=== PATIENT | female | born 1985 | race Caucasian/White ===

== ENCOUNTER 2019-06-20 10:30 | Outpatient (RCR) | payer OTHER, SELFPAY ==
--- NOTE | 2019-03-29 18:10 | HP.PTEVAL ---
Patient's Visit Information JOSE ORLANDO is a 33 year old F referred to Physical Therapy by SRIDEVI AGUILAR with a diagnosis of STROKE. Date of Evaluation: 03/29/19 Physical Therapist: Reece Munoz, PT, Cert MDT, OCS - Visit Plan Frequency: 2x /Week Duration: 6 Weeks Plan: PT INTERVENTIONS TO INCLUDE PROGRESSIVE BALANCE,GAIT PROGRAM,FUNCTIONAL STRENGTHENING LEFT LE ,ENDURANCE PROGRAM - Subjective Findings: This 33 y/o female presents to physical therapy with stroke with left side weakness. Patient had congential basil artery cerebullum /adam brain and found to HTN and DM .Patient had developed vertigo March 06 went to ER went home unable to move left t side. Patient had speech deficits and fascial drop which has improve.Transferred to [facility] in ICU ,did had MRI showed stroke March 07. Patient transferred to [facility] for 2weeks d/c to home March 20. Patient d/c to home with loftstrand crutch. C/O parathesia/ingling left side. Patient has no falls. Denies dizziness /YEN. Patient has difficulty with ADLS' and housework tasks/job demnads. Patient CVA affects QOL and function and RTW.Patient takes bacoflin for spasms and takes meds for HTN.Patient Independant with bathing with supervison,dressing,unable to cook. SOCIAL: . VOCATION: RN HomeHealth - Objective POSTURE: posterior pelivc tilt. GAIT: ambulates with lofstrand crutch decrease control placement left lower exremity with AFO anklle left arm flexor synergy with stance time. NEURO: HYPONTICITY left lower leg ,hypertonicity left arm,reflees 1/3 achilles ,patella. light touch. TRANSFERS : SIT STAND mod Independant. BED MOBLITY: supine sit with mod Independant. PROM: left lower leg WFL ,AROM decrease hip flexion and poor ankle synergy. MMT: left quads 4-/5,hams 4-/5,hip flexion 3/5,hip abd 3-/5,ankle 1/5 DF/PF. BALANCE: fair+ with no devoce. STAIRS: one step at a time with rails lofstrand - Balance Scores CATSIB Score (Max score 120 seconds): 85 - Goals Goal 1:: Patient to be Independant with HEP. Goal Time Frame: 4-6 Weeks Goal 2:: Patient to ambulate with least restrictive device community distance with improved Quality of gait . Goal Time Frame: 4-6 Weeks Goal 3:: Patient to improve dynamic balance to good Goal Time Frame: 4-6 Weeks Goal 4:: Patient to increase strength of left leg 4/5 exept 3+/5 hip and ankle 4/5 to improve gait Goal Time Frame: 4-6 Weeks Goal 5:: Patient to improve LEFS score by 5-10 points to improve QOL. Goal Time Frame: 4-6 Weeks - Rehabilitation Potential Physical Therapy Diagnosis: This patient sustained CVA with left side hemiplegia with weakness left side increase tone WILFRID and increase strength quad/hams ,with decrease hip strength and poor ankle needs AFO thus causes deficits with gait,balance and ADL'S and housework activities /job demnads. Rehabilitation Potential: Good - Anticipated Interventions Patient/Client Instruction: Educate patient on: Condition, Plan of Care For the Purpose of:: To improve muscle performance and motor function, To improve ability to perform ADL's, To increase tolerance to activity/condition/position, To improve performance and independence with ADL's, To improve ability of physical actions for home/community/work/leisure, To improve gait and locomotor functions, To increase flexibility/ROM, To improve endurance, To improve safety with gait, To improve ability to perform tasks related to life management Therapeutic Exercise to Include: Strength training, Endurance training, Balance training, Coordination, Gait and locomotor training Comment: LEFT LEG For the Purpose of:: To improve muscle performance and motor function, To improve ability to perform ADL's, To increase tolerance to activity/condition/position, To improve ability of physical actions for home/community/work/leisure, To improve gait and locomotor functions, To improve endurance, To improve balance, To improve safety with gait, To improve health and function, To improve ability to perform tasks related to life management Functional Training to Include: Gait training For the Purpose of:: To improve muscle performance and motor function, To improve performance and independence with ADL's Thank you for the opportunity to evaluate your patient. For Medicare and Medicare HMO plans, please review the plan of care and approve it. It will need to be FAXED BACK to us at [phone] for Medicare purposes. For Medicare only, by signing this I certify the plan of care. Please let me know if there are questions or concerns regarding this plan of care. Physician Signature: Date:
--- NOTE | 2019-03-29 18:25 | HP.OTEVAL ---
Patient's Visit Information JOSE ORLANDO is a 33 year old F, referred to Occupational Therapy by SRIDEVI AGUILAR, with a diagnosis of L sided weakness Stroke. Date of Evaluation: 03/29/19 Occupational Therapist: Marimar Stern - Subjective Subjective: Pt seen for initial occupational therapy evaluation for stroke occured 03/06/19. Pt was at [facility] ICU for 2 days, step down for 2 days and rehab 10 days. PMHx DM, high blood pressure, stroke. R handed. Pt lives w/ spouse and daughter. 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 Indep w/ all BADLs/IADLs prior. Pt has numbness and tingling L hand down to toes. Pt reports living with mother and father for time being secondary to requires 24hr supervision. 1 story house, walk in shower w/ shower chair, grab bar, HHS, 3 in 1 commode available but using comfort height commode w/ grab bar, has WC, transport chair, pt has AFO L foot and using forearm crutch. when returns home w/ spouse 2 story house 3 steps to enter, tub/shower, 3 in 1 commode. - Objective Objective/Observation: decreased ROM and strength L UE - ROM ROM Comments: R WFL, L UE PROM WFL, AROM shoulder flexion0/72, shoulder abduction 0/65, elbow -20/118, wrist 0/0, slight flexion digits, unable to complete AROM extension of digits. - Strength Human Resource Manager: R 75#, L 0# Lateral Pinch: R 12# , L 0# Tripod Pinch: R 14#, L 0# Strength Comments: R UE 4+/5, L UE 1/5 hand/forearm, 2/5 bicep/tricep - Edema Other: Slight edema noted L digits - Sensation Sensation Comments: Numbness and tingling L hand down to toes. - Quick DASH-Disab of Arm,Shoulder& Hand Quick DASH Score: 63.6350 - Goals Goal:: Pt will progress w/ L UE bicep/tricep strength 4/5 to assist w/ functional transfers. Pt will progress w/ L resident hall director strength by 5# to assist w/ BADL tasks. Goal:: Pt will progress w/ L wrist extension AROM by 30' to incresae functional use of L UE for BADLs. Pt will progress w/ L elbow AROM to 0/120 to assist w/ UB dressing. Goal:: Pt will be able to aishwarya/doff shoes and socks w/ PR level using AE as needed. Goal:: Pt will be educated on L UE HEP w/ good understanding and demo 100%x Goal:: Pt will progerss w/ L arm coordination skills to increase ability to cut up food w/ SUP level by d/c from OT services. - Rehabilitation General Assessment: Pt seen for initial occupational therapy evaluation for L sided weakness and stroke that occurred middle of February. Pt demonstrates decreased ROM and strength L UE with limited coordiantion and decraesed indep w/ BADL tasks all indicating a need for skilled OT interventions to increase L UE ROM, strength, indep w/ BADLs, and coordination to increase pts quality of life and return to PLOF. 2x/wk x 6wks Rehabilitation Potential: Excellent - Anticipated Interventions Anticipated Interventions: A/AAROM/PROM, Strengthening, Edema Control, Massage, Sensory Retraining, Modalities, Orthoses, Joint Protection/Energy Conservation, Fine Motor Coord/Fab, Neuro Reeducation, ADL Training, Education re assistive Equipment, Education re Diagnosis, Caregiver Training, Home Program - Visit Plan Frequency: 2x /Week Duration: 6 Weeks General Plan: increase L UE ROM, strength, indep w/ BADLs, and coordination to increase pts quality of life and return to PLOF. 2x/wk x 6wks TEXT: Thank you for the opportunity to evaluate your patient. For Medicare and Medicare HMO plans, please review the plan of care and approve it. It will need to be FAXED BACK to us at [phone] for Medicare purposes. Please let me know if there are questions or concerns regarding this plan of care. Physician Signature: Date:
--- NOTE | 2019-05-16 13:45 | OTREVAL_ITS ---
SRIDEVI AGUILAR, It has been my pleasure to treat JOSE ORLANDO over the last 12 visits for L sided weakness Stroke. Please see the progress note below for an update on the occupational therapy plan of care! Subjective: ready for OT Re-eval, pt excited to show therapist her progress Objective/Function: Pt making great progress with OT goals. Pt has progressed with elbow AROM from -20/118 to 0/125. Pt has progressed with shoulder flexion to 120' AROM and shoulder abduction to 95' AROM. Pt was not able to squeeze with L hand to complete building and grounds supervisor strength testing at initial evaluation and now demo 10# building and grounds supervisor strength w/ L hand and 3+/5 bicep/tricep strength L UE. Pt demo decreased spasms of L UE and has progressed with donning/doffing her own socks/shoes and tying her shoes with extra time needed. Pt would continue to benefit from direct occupational therapy services to continue to increase AROM L wrist extension, increase ROM and functional movement of L hand and shoulder abduction/flexion and increase building and grounds supervisor strength of L hand to increase pts indep w/ BADLs and functional living tasks. Rec continued OT 8 visits within 8 wks. Plan Frequency: 8 visits - 8 visits, 8 wks Duration: 8 wks Visits in this POC: 8 visits per 8 wks Plan: see re-eval Goals - Goals Goal:: Pt will progress w/ L UE bicep/tricep strength 4/5 to assist w/ funct ional transfers. Pt will progress w/ L building and grounds supervisor strength to 25# to assist w/ BADL tasks. Goal:: Pt will progress w/ L wrist extension AROM by 30' to incresae functional use of L UE for BADLs. Pt will progress w/ L shoulder abduction AROM to 120' to increase indep w/ BADL tasks. Goal:: Pt will be able to aishwarya/doff shoes and socks w/ AR level using AE as needed. Goal:: Pt will be educated on L UE HEP w/ good understanding and demo 100%x Goal:: Pt will progerss w/ L arm coordination skills to increase ability to cut up food w/ SUP level by d/c from OT services. Anticipated Interventions Anticipated Interventions: A/AAROM/PROM, Strengthening, Edema Control, Massage, Sensory Retraining, Modalities, Orthoses, Joint Protection/Energy Conservation, Fine Motor Coord/Fab, Neuro Reeducation, ADL Training, Education re assistive Equipment, Education re Diagnosis, Caregiver Training, Home Program Please do not hesitate to contact me at [phone] by phone or if you have questions or concerns regarding this new plan of care! Sincerely, Marimar Stern
--- NOTE | 2019-06-20 13:51 | HP.OTDCSUM ---
HP - OT D/C Summary It has been my pleasure to treat JOSE ORLANDO under orders from SRIDEVI AGUILAR, for the diagnosis of L sided weakness Stroke for a total of 20 visit(s). Please see the following information for a summary of their discharge status. - Overall Improvement % Improvement: 60 - Objective Objective/Function: Pt frustrated with decrease in function due to medication. - Goals Patient Goals: Regain Mobility, Regain Strength, Decrease Pain, Decrease Swelling/Stiffness, Improve Fine Motor Skills, Use Hand/Wrist/Arm Normally Again, Decrease Tingling/Numbness, Increase ROM, Be More Independent in ADLS, Decrease Muscle Tone, Resume Former Household Responsibilities (Cooking,Cleaning,Yard, etc.), Resume Hobbies Goal:: Pt will progress w/ L UE bicep/tricep strength 4/5 to assist w/ functional transfers. Pt will progress w/ L accountant controller strength to 25# to assist w/ BADL tasks. Goal:: Pt will progress w/ L wrist extension AROM by 30' to incresae functional use of L UE for BADLs. Pt will progress w/ L shoulder abduction AROM to 120' to increase indep w/ BADL tasks. Goal:: Pt will be able to aishwarya/doff shoes and socks w/ LA level using AE as needed. Goal:: Pt will be educated on L UE HEP w/ good understanding and demo 100%x Goal:: Pt will progerss w/ L arm coordination skills to increase ability to cut up food w/ SUP level by d/c from OT services. - Plan Plan: d/c OT POC secondary to cut by insurance - D/C Information Discharge Comments: Pt has progressed with OT services and demonstrates increased indep with self care tasks with extra time needed. She is able to get her socks and shoes on and dress her self with extra time needed. Pt has progressed with L accountant controller strength from 0# initially to 20# present. Pt shoulder flexion AROM has progressed to 147' flexion. L bicep generalized strength has progressed to -4/5. Pt AROM L wrist extension has progressd to 55' and shoulder abduction has progressed from 65' to 105'. Pt did not meet all ROM and strength goals secondary to cut by insurance. Would recommend further OT services however pt met max insurance visits therefore d/c OT services. If there are questions or concerns regarding this patient's occupational therapy, please fell free to call me at [phone]. Thank you for the referral of this patient. Sincerely, Marimar Stern
--- NOTE | 2019-07-31 13:43 | HP.PTDCSUM ---
HP - PT D/C Summary It has been my pleasure to treat JOSE ORLANDO under orders from SRIDEVI AGUILAR, for the diagnosis of STROKE for a total of 20 visit(s). Discharge Date: Please see the following information for a summary of their discharge status. - Subjective Subjective: Patient frustrated with insurance . Patient able to walk better no lofstrand crutch and AFO . Patient can walk without left AFO in home. Patient wants PT to get more vists but called insurance stated no hard cape 20 visits.Insurance person called.Discussed with patient transition to HP and thompson package. Patient plans to joint HP with transition program. Also look into thompson package. - Overall Improvement % Improvement: 60 - Objective Objective/Function: POSTURE: rounded shoulders head foward. NEURO: flexor synergy left hand and lower leg with increase tone. GAIT: Mod I with AFO with decrease swing phase no active DF ,flexor synergy. MMT: quads/hams 4/5,hip 4-/5 ankle anterior tibials trace. BALANCE: good -. STAIRS: alternate with rail - Goals Goal 1:: Patient to be Independant with HEP. Goal Progress: Goal Met Goal 2:: Patient to ambulate with least restrictive device community distance with improved Quality of gait . Goal Progress: Goal Met Goal 3:: Patient to improve dynamic balance to good Goal Progress: Progressing Goal 4:: Patient to increase strength of left leg 4/5 exept 3+/5 hip and ankle 4/5 to improve gait Goal Progress: Progressing Goal 5:: Patient to improve LEFS score by 5-10 points to improve QOL. Goal Progress: Goal Met - Plan Plan: May consider thompson package,thus is d/c - D/C Information If there are questions or concerns regarding this patient's physical therapy, please feel free to call me at [phone]. Thank you for the referral of this patient. Sincerely, Reece Munoz, PT, Cert MDT, OCS
== END 2019-06-20 19:00 | disposition home or self-care (01) ==
LOC: PT 10:30
DX: Z86.73 Personal history of transient ischemic attack (TIA), and cerebral infarction without residual deficits (principal); G81.14 Spastic hemiplegia affecting left nondominant side; R29.2 Abnormal reflex
CPT/HCPCS: 97014; 97110; 97112; 97140; 97162; 97165; 97166; 97168; 97530; G0283

== ENCOUNTER 2021-03-27 10:00 | Outpatient (RCR) | payer OTHER, SELFPAY ==
--- NOTE | 2020-08-20 09:23 | HP.PTEVAL_ITS ---
Patient's Visit Information JOSE ORLANDO is a 35 year old F referred to Physical Therapy by JAQUAN COOL with a diagnosis of L sided weakness. Date of Evaluation: 08/20/20 Physical Therapist: Kwasi Jordan, PT, ATC - Visit Plan Frequency: 3x /Week Duration: 4-6 Weeks Plan: L LE stretching and strengthening, balance and proprio, core stab ex's, nustep, and HEP - Subjective CVA: March 07, 2019. Pt reports she had a stroke at that time that has left her with L sided weakness. Pt reports she has had Pt in the past and has worked with a massage therapist to aid with her L UE. Pt reports 12 months ago she could not even move her L arm. Pt reports her L LE is less stable, but reports she feels 75% recovered. Pt reports her greatest complaint is with her L ankle, as she has drop foot. 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 Pt notes good sensation in L LE. Pt does not ambulate with the use of an AD. Pt reports she has stairs at home and has difficulty with negotiating them. Pt also notes difficulty with prolonged ambulation. Pt reports her balance is off, most notably if she is walking down a hill or ramp. No pain this date. - Objective Neuro: B LE sensation is WNL to light touch. R patellar reflex= 1/3, L= 3+/3. MMT: R LE is grossly 5/5 throughout. L hip strength is 4+/5. L knee strength 4- /5. L ankle DF strength is 0/5. FGA: 1530. Gait: Pt ambulates with a mild limp of the L LE and circumduction - Balance Scores Functional Gait Assessment Score: 15 % Disability: 50.0000 - Goals Goal 1:: Increase L LE strength x 1 grade to aid with stair negotiation Goal Time Frame: 4-6 Weeks Goal 2:: Increas FGA x 5-10 points to aid with preventing future falls Goal Time Frame: 4-6 Weeks Goal 3:: I with HEP - Rehabilitation Potential Physical Therapy Diagnosis: L sided weakness, difficulty with stairs, and decreased balance secondary to residual effects from CVA Rehabilitation Potential: Good - Anticipated Interventions Patient/Client Instruction: Educate patient on: Condition, Plan of Care For the Purpose of:: To improve self management Therapeutic Exercise to Include: Strength training, Endurance training, Balance training, Flexibilty training, Dynamic Lumbar Stabilization For the Purpose of:: To decrease pain, To increase ROM, To improve muscle performance and motor function Thank you for the opportunity to evaluate your patient. For Medicare and Medicare HMO plans, please review the plan of care and approve it. It will need to be FAXED BACK to us at [phone] for Medicare purposes. For Medicare only, by signing this I certify the plan of care. Please let me know if there are questions or concerns regarding this plan of care. Physician Signature: Date:
--- NOTE | 2020-08-22 08:47 | HP.OTEVAL_ITS ---
Patient's Visit Information JOSE ORLANDO is a 35 year old F, referred to Occupational Therapy by JAQUAN COOL, with a diagnosis of CVA left UE weakness. Date of Evaluation: 08/21/20 Occupational Therapist: Rena Díaz, MERT/Paxton, CHT - Subjective This 35 year old female was seen for OT eval with dx of CVA and left UE w eakness. Pt states she has had difficulty with muscle tightness. Pt is working with massage therapist and cupping at home to decrease her muscle tightness- pt states with suppliments she started taking in apr she is pain free. - ROM Shoulder: right WNL 85 Elbow: right WNL left 135 Forearm: right WNL left initiation Wrist: right WNL left initiation ROM Comments: pt has fisted hand but with wrist positioned in flex fingers open up - Strength Shoulder: right 4+/5 left 3/5 Elbow: right 4+/5 left 3/5 Forearm: right 4+/5 trace Wrist: right 4+/5 trace Inter Com Installer: right 72# left unable Lateral Pinch: right 6# left unable Tripod Pinch: right 10# left unable - Sensation Sensation Comments: numbess in palm that comes and goes - Movement Muscle Tone: left shoulder min/ biceps mod forearm min and wrist mod fingers min - Quick DASH-Disab of Arm,Shoulder& Hand Quick DASH Score: 55.0000 - Goals Goal:: pt will demo the ability to resisit MMT 4/5 in sitting with left UE indicating a increase in pts functional strength by d/c Goal:: pt will demo left shoulder flex to 155* or greater to increase ind with ADLS and IADLs by d/c. pt will demo left forearm supination to 70* or greater to increase ind with ADls and IADLS by d/c. pt will demo increase digit ROM to initiate grasp and release of med/large objects at able to use left UE as assistive UE with ADLs and IADLs Goal:: pt will report pain no greater than 2/10 with use of left UE for ADls or while performing her Theray by d/c Goal:: pt will demo the ability to grasp large and medium objects by d/c - Rehabilitation General Assessment: pt demo with limited left UE AROM and functional limitations with ADLs and IADLs. Pt has increase tone in shoulder/biceps/triceps-no wrist or digit ext - fingers in flexed position with ambulation. pt would benefit from skilled OT services to increase pts functional left UE ROM to increase pt ind. with ADLs and IADLS. Today therapist ed. pt on AAROM of left UE shoulder/elbow/wrist and digits followed with PROM, wt.B. pt demo understanding and agree to POC. Rehabilitation Potential: Good - Anticipated Interventions A/AAROM/PROM, Strengthening, Ergonomic Education, Fine Motor Coord/Fab, Neuro Reeducation, ADL Training, Education re assistive Equipment, Home Program - Visit Plan Frequency: 3x /Week Duration: 3 Months TEXT: Thank you for the opportunity to evaluate your patient. For Medicare and Medicare HMO plans, please review the plan of care and approve it. It will need to be FAXED BACK to us at [phone] for Medicare purposes. Please let me know if there are questions or concerns regarding this plan of care. Physician Signature: Date:
--- NOTE | 2020-09-10 12:32 | OTREVAL_ITS ---
JAQUAN COOL, It has been my pleasure to treat JOSE ORLANDO over the last 7 visits for CVA left UE weakness. Please see the progress note below for an update on the occupational therapy plan of care! Subjective: Pt arrived stating she saw her massage therapist and he thinks the pain is from her traps and rhomboids are what is weak and causing her so much pain. pt states she is performing her ex. daily Objective/Function: Increase pain with shoulder flexion. pt demo good concistant elbow flex/ext -. no functional wrist ext at this time. and figers flexing with contractures-limiting a functional grasp. pts shoulder still painful in pec region with reaching tasks . pt would benefit from skilled OT services 2-3x week for 8 weeks. Plan Frequency: 3x /Week Duration: 3 Months Plan: get mixing plant operator prior ex. cont with AAROM. shoulder AAROM to gain functional use of UE Goals - Goals Patient Goals: Regain Mobility, Regain Strength, Use Hand/Wrist/Arm Normally Again, Be More Independent in ADLS Goal:: pt will demo the ability to resisit MMT 4/5 in sitting with left UE indicating a increase in pts functional strength by d/c Goal:: pt will demo left shoulder flex to 155* or greater to increase ind with ADLS and IADLs by d/c. pt will demo left forearm supination to 70* or greater to increase ind with ADls and IADLS by d/c. pt will demo increase digit ROM to initiate grasp and release of med/large objects at able to use left UE as assistive UE with ADLs and IADLs Goal:: pt will report pain no greater than 2/10 with use of left UE for ADls or while performing her Theray by d/c Goal:: pt will demo the ability to grasp large and medium objects by d/c Anticipated Interventions Anticipated Interventions: A/AAROM/PROM, Strengthening, Ergonomic Education, Fine Motor Coord/Fab, Neuro Reeducation, ADL Training, Education re assistive Equipment, Home Program Please do not hesitate to contact me at [phone] by phone or if you have questions or concerns regarding this new plan of care! Sincerely, Rena Díaz, OTR/L, CHT
--- NOTE | 2020-12-18 16:35 | HP.PTREVAL ---
JAQUAN COOL, It has been my pleasure to treat JOSE ORLANDO over the last 26 visits for L sided weakness. Please see the progress note below for an update on the physical therapy plan of care! Subjective: Pt reports she is progressing a lot. Notes she is walking better and is able to transfer easier. Pt notes her DF in her L ankle is improving, and stair negotiation is becoming much improved. Objective/Function: Pt is in no pain today. L LE strength is grossly 5/5 with exception to L ankle DF= 3/5. FGA= 21/30. Gait: Pt is able to ambulate 1700 feet until having to sit and rest Plan Plan: Cont with POC with emphasis on stair negotiation, balance activity, and L ankle strengthening Goals Goal 1:: Increase L LE strength x 1 grade to aid with stair negotiation Goal Time Frame: 4-6 Weeks Goal Progress: Goal Met Goal 2:: Increas FGA x 5-10 points to aid with preventing future falls Goal Time Frame: 4-6 Weeks Goal Progress: Goal Met Goal 3:: I with HEP Goal Progress: Progressing Goal 4:: Increase FGA x 10 points to aid with preventing future falls Goal Time Frame: 4-6 Weeks Goal Progress: New goal Goal 5:: Pt will be able to negotiate 1 flight of stairs with no use of UE's and carrying 5 pounds to simulate carrying groceries up a flight of stairs Goal Time Frame: 4-6 Weeks Goal Progress: New goal Anticipated Interventions Patient/Client Instruction: Educate patient on: Condition, Plan of Care For the Purpose of:: To improve self management Therapeutic Exercise to Include: Strength training, Endurance training, Balance training, Flexibilty training, Dynamic Lumbar Stabilization For the Purpose of:: To decrease pain, To increase ROM, To improve muscle performance and motor function Please do not hesitate to contact me at [phone] by phone or if you have questions or concerns regarding this new plan of care! Sincerely, Kwasi Jordan, PT, ATC
--- NOTE | 2021-01-07 08:02 | OTREVAL_ITS ---
JAQUAN COOL, It has been my pleasure to treat JOSE ORLANDO over the last 3 visits for CVA left UE weakness. Please see the progress note below for an update on the occupational therapy plan of care! Subjective: Pt states her week off did well for her. Pt has little tingles in fingers today. Massage therapist states he can feel deltoid now. 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 pt demo shoulder flex to 90*. pt demo increased ability to reach across body performing horizontal shoulder adduction-. noted pt continues to have fluid elbow flex/ext and demo forearm supination with elbow flex and pronation with elbow ext. if elbow is at 90* pt demo ataxic left forearm supination (with scapular retraction compensation). pt demo with wrist ext has gained 25* of active motion. no consistant finger or thumb motion- at this time- pt continues to make gains with her motion and would benefit from skilled OT services 2x week for 4 weeks to continue to stress motion and return of left UE use. Plan Frequency: 3x /Week Duration: 3 Months Plan: cont w/OT POc Goals - Goals Patient Goals: Regain Mobility, Regain Strength, Use Hand/Wrist/Arm Normally Again, Be More Independent in ADLS Goal:: pt will demo the ability to resisit MMT 4+/5 in sitting with left UE indicating a increase in pts functional strength by d/c Goal:: pt will demo left shoulder flex to 165* or greater to increase ind with ADLS and IADLs by d/c. pt will demo left forearm supination to 70* or greater to increase ind with ADls and IADLS by d/c. pt will demo increase digit ROM to initiate grasp and release of med/large objects at able to use left UE as assistive UE with ADLs and IADLs Goal:: pt will report pain no greater than 2/10 with use of left UE for ADls or while performing her Theray by d/c Goal:: pt will demo the ability to grasp large and medium objects ind with left and hold for 10 sec. as precursor for ADLs by d/c Anticipated Interventions Anticipated Interventions: A/AAROM/PROM, Strengthening, Ergonomic Education, Fine Motor Coord/Fab, Neuro Reeducation, ADL Training, Education re assistive Equipment, Home Program Please do not hesitate to contact me at [phone] by phone or if you have questions or concerns regarding this new plan of care! Sincerely, Rena Díaz, OTR/L, CHT
--- NOTE | 2021-01-22 16:18 | HP.PTREVAL ---
JAQUAN COOL, It has been my pleasure to treat JOSE ORLANDO over the last 15 visits for L sided weakness. Please see the progress note below for an update on the physical therapy plan of care! Subjective: Pt reports she feels ready to give I exercise a chance. She feels like she has come a long way and wants to exercise for a month on her own and then be re-assessed to make sure she is still improving. Objective/Function: FGA: 27/30 10% disability. Stairs: Pt was able to ascend and descend 1 flight of stairs holding a 5# wt and using no HR. Pt is I with HEP Plan Plan: Recheck in 1 month Goals Goal 1:: Increase L LE strength x 1 grade to aid with stair negotiation Goal Time Frame: 4-6 Weeks Goal Progress: Goal Met Goal 2:: Increas FGA x 5-10 points to aid with preventing future falls Goal Time Frame: 4-6 Weeks Goal Progress: Goal Met Goal 3:: I with HEP Goal Progress: Goal Met Goal 4:: Increase FGA x 10 points to aid with preventing future falls Goal Time Frame: 4-6 Weeks Goal Progress: Goal Met Goal 5:: Pt will be able to negotiate 1 flight of stairs with no use of UE's and carrying 5 pounds to simulate carrying groceries up a flight of stairs Goal Time Frame: 4-6 Weeks Goal Progress: Goal Met Anticipated Interventions Patient/Client Instruction: Educate patient on: Condition, Plan of Care For the Purpose of:: To improve self management Therapeutic Exercise to Include: Strength training, Endurance training, Balance training, Flexibilty training, Dynamic Lumbar Stabilization For the Purpose of:: To decrease pain, To increase ROM, To improve muscle performance and motor function Please do not hesitate to contact me at [phone] by phone or if you have questions or concerns regarding this new plan of care! Sincerely, Kwasi Jordan, PT, ATC
--- NOTE | 2021-01-27 12:39 | OTREVAL_ITS ---
JAQUAN COOL, It has been my pleasure to treat JOSE ORLANDO over the last 15 visits for CVA left UE weakness. Please see the progress note below for an update on the occupational therapy plan of care! Subjective: pt states she is doing ok- continues to have tightness in left shoulder- pec region- fingers continue to have tone limiting pts ability to extend fingers or release an object once grasped. Objective/Function: pt demo a left electric meter repairer strength of 30# this is increase from 20 at last doc. pt demo shoulder flex to 105 a increase from 90*. pt demo increased ability to reach across body performing horizontal shoulder abduction- . noted pt continues to have fluid elbow flex/ext and demo forearm supination with elbow flex and pronation with elbow ext. if elbow is at 90* pt demo ataxic left forearm supination (with scapular retraction compensation). pt demo with wrist ext has gained 25* of active motion. no consistent finger or thumb motion- at this time- pt continues to make gains with her motion and would benefit from skilled OT services 1x a month for 4 weeks to continue to stress motion and return of left UE use. pts tone in left UE flexor tendons pt would benefit from use of dynasplint to decrease tone patterns- to increase functional ROM Plan Frequency: Monthly - Due to insurance changes Duration: 3 Months Plan: cont with POC Goals - Goals Patient Goals: Regain Mobility, Regain Strength, Use Hand/Wrist/Arm Normally Again, Be More Independent in ADLS Goal:: pt will demo the ability to resisit MMT 4+/5 in sitting with left UE indicating a increase in pts functional strength by d/c Goal:: pt will demo left shoulder flex to 165* or greater to increase ind with ADLS and IADLs by d/c. pt will demo left forearm supination to 70* or greater to increase ind with ADls and IADLS by d/c. pt will demo increase digit ROM to initiate grasp and release of med/large objects at able to use left UE as assistive UE with ADLs and IADLs Goal:: pt will report pain no greater than 2/10 with use of left UE for ADls or while performing her Theray by d/c Goal:: pt will demo the ability to grasp large and medium objects ind with left and hold for 10 sec. as precursor for ADLs by d/c Anticipated Interventions Anticipated Interventions: A/AAROM/PROM, Strengthening, Ergonomic Education, Fine Motor Coord/Fab, Neuro Reeducation, ADL Training, Education re assistive Equipment, Home Program Please do not hesitate to contact me at [phone] by phone or if you have questions or concerns regarding this new plan of care! Sincerely, Rena Díaz, OTR/L, CHT
--- NOTE | 2021-02-19 11:04 | HP.PTREVAL ---
JAQUAN COOL, It has been my pleasure to treat JOSE ORLANDO over the last 16 visits for L sided weakness. Please see the progress note below for an update on the physical therapy plan of care! Subjective: Pt reports she has continued to make way over the last month. Objective/Function: L LE strength is 5/5 throughout with exception to L ankle which is 3/5. FGA= 27/30. Pt is able to ascend stairs without difficulty, but requires handrail to descend. Pt is I with HEP Plan Plan: reassess in 6 weeks Goals Goal 1:: Increase L LE strength x 1 grade to aid with stair negotiation Goal Time Frame: 4-6 Weeks Goal Progress: Goal Met Goal 2:: Increas FGA x 5-10 points to aid with preventing future falls Goal Time Frame: 4-6 Weeks Goal Progress: Goal Met Goal 3:: I with HEP Goal Progress: Goal Met Goal 4:: Increase FGA x 10 points to aid with preventing future falls Goal Time Frame: 4-6 Weeks Goal Progress: Goal Met Goal 5:: Pt will be able to negotiate 1 flight of stairs with no use of UE's and carrying 5 pounds to simulate carrying groceries up a flight of stairs Goal Time Frame: 4-6 Weeks Goal Progress: Goal Met Anticipated Interventions Patient/Client Instruction: Educate patient on: Condition, Plan of Care For the Purpose of:: To improve self management Therapeutic Exercise to Include: Strength training, Endurance training, Balance training, Flexibilty training, Dynamic Lumbar Stabilization For the Purpose of:: To decrease pain, To increase ROM, To improve muscle performance and motor function Please do not hesitate to contact me at [phone] by phone or if you have questions or concerns regarding this new plan of care! Sincerely, Kwasi Jordan, PT, ATC
--- NOTE | 2021-03-27 10:57 | HP.PTREVAL ---
JAQUAN COOL, It has been my pleasure to treat JOSE ORLANDO over the last 17 visits for L sided weakness. Please see the progress note below for an update on the physical therapy plan of care! Subjective: Some days I feel weaker, some days I feel stronger. I can go up the stairs easier. My tone is lessening in my leg. Objective/Function: L LE strength is 5/5 throughout with exception to L ankle which is 3/5. FGA= 26/30. Pt is able to ascend stairs without difficulty, but requires handrail to descend. Pt is I with HEP. Pt is showing continued way with HEP at this time. Plan Plan: reassess in 6 weeks Goals Goal 1:: Increase L LE strength x 1 grade to aid with stair negotiation Goal Time Frame: 4-6 Weeks Goal Progress: Goal Met Goal 2:: Increas FGA x 5-10 points to aid with preventing future falls Goal Time Frame: 4-6 Weeks Goal Progress: Goal Met Goal 3:: I with HEP Goal Progress: Goal Met Goal 4:: Increase FGA x 10 points to aid with preventing future falls Goal Time Frame: 4-6 Weeks Goal Progress: Goal Met Goal 5:: Pt will be able to negotiate 1 flight of stairs with no use of UE's and carrying 5 pounds to simulate carrying groceries up a flight of stairs Goal Time Frame: 4-6 Weeks Goal Progress: Goal Met Anticipated Interventions Patient/Client Instruction: Educate patient on: Condition, Plan of Care For the Purpose of:: To improve self management Therapeutic Exercise to Include: Strength training, Endurance training, Balance training, Flexibilty training, Dynamic Lumbar Stabilization For the Purpose of:: To decrease pain, To increase ROM, To improve muscle performance and motor function Please do not hesitate to contact me at [phone] by phone or if you have questions or concerns regarding this new plan of care! Sincerely, Kwasi Jordan, PT, ATC
== END 2021-03-27 19:00 | disposition home or self-care (01) ==
LOC: PT 10:00
DX: S60.5 Other superficial injuries of hand (principal)
CPT/HCPCS: 97110; 97112; 97140; 97161; 97164; 97166; 97530; 97760

== ENCOUNTER 2021-05-05 16:00 | Outpatient (RCR) | payer OTHER, SELFPAY ==
--- NOTE | 2021-10-05 09:33 | HP.PT.NRP ---
JOSE Cinthia ORLANDO was seen in my office for initial evaluation on . The following Plan of Care was established for this patient: This patient was last seen in our office . Pertinent comments regarding their Physical therapy will appear below: Pt was treated for 18 PT visits for L sided weakness through the date of 05/05/21. Pt has not returned today and is therefore discontinued at this time. At this point I will be discontinuing this patient from physical therapy. I would be happy to see this patient again in the future if found appropriate by the physician. Thank you! Kwasi Jordan, PT, ATC Balance/Gait/Functional tests - Balance/Special Test Scores Functional Gait Assessment Score: 26 % Disability: 13.2275
== END 2021-05-05 19:00 | disposition home or self-care (01) ==
LOC: PT 16:00
DX: M21.372 Foot drop, left foot (principal)
CPT/HCPCS: 97140; 97164; 97530

== ENCOUNTER 2022-04-19 18:00 | Outpatient (RCR) | payer OTHER, SELFPAY ==
--- NOTE | 2021-10-21 12:22 | HP.PTEVAL_ITS ---
Patient's Visit Information JOSE ORLANDO is a 36 year old F referred to Physical Therapy by SEBASTIAN MICHAEL with a diagnosis of L hemiparesis. Date of Evaluation: 10/21/21 Physical Therapist: Kwasi Jordan, PT, ATC - Visit Plan Frequency: 2-3x /Week Duration: 3 Months Plan: L ankle stretching and strengthening, PROM/mobs L ankle, balance and proprio, nustep, and HEP - Subjective CVA: 03/07/19. Pt reports she had a stroke which left her with L hemiparesis. Pt reports she has had PT in the past which made a big difference. However, pt notes she still has difficulty with L UE and LE weakness. Pt notes she had a botox injection seven days ago which has helped with some of her contractures. Pt reports in August of 2021 she had a hysterectomy which has also left her feeling quite a bit debilitated. Pt reports she does still notice gradual improvements overall with her mobility, but notes she is frustrated with her deficits. Pt has stairs at home and notes she has to negotiate them one step at a time. Pt reports she is still limited with UE fuctions as well like folding laundry and cleaning. No tingling or numbness in LE's. Pt reports her major goals are to increase L LE flexibility and to strengthen L UE. Pt reports she is still in pain along her L lateral thigh, anterior morfin, and L gastroc. Pt reports her pain is currently rated at 2/10. - Pain L LE Pain Intensity (Out of 10): 2 - Objective Neuro: B LE sensation is WNL to light touch. R patellar reflex= 1/3, L= 3/3. ROM: R ankle DF= 4, PF= 60; L ankle DF= -20, PF= 50. MMT: L ankle is grossly 2- /5, R ankle 5/5 throughout. Gait: Pt ambulates with minimal heelsstrike and toe off in L LE - Balance/Special Test Scores Lower Extremity Functional Score: 42 - Goals Goal 1:: Increase L ankle DF ROM x 20 degrees to aid with gait Goal Time Frame: 4-6 Weeks Goal 2:: Increase L ankle strength x 1 grade to aid with stair negotiation Goal Time Frame: 4-6 Weeks Goal 3:: I with HEP Goal Time Frame: 4-6 Weeks Goal 4:: Pt will demonstrate a more normalized gait pattern with better heel strike to aid with community ambulation Goal Time Frame: 4-6 Weeks - Rehabilitation Potential Physical Therapy Diagnosis: Pt has L sided weakness, limited L ankle ROM, and difficulty with gait pattern secondary to L hemiparesis Rehabilitation Potential: Good - Anticipated Interventions Patient/Client Instruction: Educate patient on: Condition, Plan of Care For the Purpose of:: To improve self management Therapeutic Exercise to Include: Strength training, Balance training, Flexibilty training, Passive ROM, Active ROM For the Purpose of:: To decrease pain, To increase ROM, To improve muscle performance and motor function Thank you for the opportunity to evaluate your patient. For Medicare and Medicare HMO plans, please review the plan of care and approve it. It will need to be FAXED BACK to us at [phone] for Medicare purposes. For Medicare only, by signing this I certify the plan of care. Please let me know if there are questions or concerns regarding this plan of care. Physician Signature: Date:
--- NOTE | 2021-10-21 15:17 | HP.OTEVAL_ITS ---
Patient's Visit Information JOSE ORLANDO is a 36 year old F, referred to Occupational Therapy by SEBASTIAN MICHAEL, with a diagnosis of CVA, spastic hemiparesis. Date of Evaluation: 10/21/21 Occupational Therapist: Rena Díaz, OTR/L, CHT - Subjective This 36 year old female was seen for OT eval with dx of left spastic hem iparesis- order calls for OT 2x week of 12 weeks- total of 24 visits-. pt just had Botox 1 week ago- pt is still on Tizandine (muscle relaxer)- pts goals are to gain more ROM to increases functional use of left UE with daily tasks. 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 - ADLs Dressing: Overhead shirt, Button shirt, Pants, Socks Fasteners: Tie shoes, Buttons, Zippers Bathing: Handle washcloth & soap, Wash hair, Squeeze shampoo bottle Kitchen: Peel fruits & vegetables, Open jars, Open bottle caps Miscellaneous: Use cell phone, Handle money (change), Take things out of wallet, Use computer keyboard - Pain left UE 1 Pain Intensity Range: 3, 4 - ROM Shoulder: right WNL left 90* active PROM 150 shoulder flex- shoulder abduction L 110* Elbow: right WNL left 0/140 Forearm: right WNL left slow but can get Full ROM ROM Comments: pt has made good gains with her ROM -. pt demo the ability to perform shoulder flexion without compensation of elbow flex- - Strength H[employer] Captain: right 70# left 35# Lateral Pinch: right 10# left 8# Tripod Pinch: right 12# Left unable - Sensation Sensation Comments: numbness tingling just in finger tips (pip distally) pt states increase pins and needles with increase use and will get the entire hand. - Quick DASH-Disab of Arm,Shoulder& Hand Quick DASH Score: 51.6650 - Goals Goal:: pt will demo a increase in left shoulder flex 4+/5 abduction 4+/5. scapula elevation 4+/5 and scapula retraction 4+/5 MMT to increase pts ROM for IND ADLS by d.c. pt will demo fluid reciprocal shoulder flexion as precursor to ADLs by week 6 Goal:: pt will demo a increase in left shoulder flex to 155* or greater to increase pts ind with ADls by d/d. pt will demo a increase in left shoulder abduction 155* or greater to increase pts ind. with ADLS and IADLS by d.c Goal:: will add goal at later date as pt gains more shoulder flex/ext Goal:: pt will demo understanding of using hand brace at night and throughout the day to decrease flexion tone of digits by end of week 3 - Rehabilitation General Assessment: pt demo with limited left UE ROM increasing need of support and assist from others for ADls and IADLS. pt would benefit from skilled OT services 2x week for 12 weeks- Therapy will focus on shoulder, scapula strengthening to assist in strengthening extensor components to counter balance flexion tone- once pt increases functional ROM of shoulder/elbow therapy will progress to functional grasp/release of objects. Rehabilitation Potential: Good - Anticipated Interventions A/AAROM/PROM, Strengthening, Triggerpoint Release, Orthoses, Ergonomic Education, Neuro Reeducation, Sensory Stimulation, ADL Training, Education re assistive Equipment, Education re Diagnosis, Caregiver Training, Home Program - Visit Plan Frequency: 2-3x /Week Duration: 3 Months TEXT: Thank you for the opportunity to evaluate your patient. For Medicare and Medicare HMO plans, please review the plan of care and approve it. It will need to be FAXED BACK to us at [phone] for Medicare purposes. Please let me know if there are questions or concerns regarding this plan of care. Physician Sig nature: Date:
--- NOTE | 2021-12-08 16:35 | HP.PTREVAL ---
SEBASTIAN MICHAEL, It has been my pleasure to treat JOSE ORLANDO over the last 13 visits for L hemiparesis. Please see the progress note below for an update on the physical therapy plan of care! Subjective: No pain this date Objective/Function: L ankle DF ROM= -15. L ankle strength 2-/5 throughout. Pt is demonstrating better heelstrike with gait, still lacking good toe off. I wtih HEP Plan Plan: Cont with current POC. Add core strengthening to the program to aid with stabilizing a more solid gait pattern Balance/Gait/Functional tests - Balance/Special Test Scores Lower Extremity Functional Score: 42 Goals Goal 1:: Increase L ankle DF ROM x 20 degrees to aid with gait Goal Time Frame: 4-6 Weeks Goal Progress: Progressing Goal 2:: Increase L ankle strength x 1 grade to aid with stair negotiation Goal Time Frame: 4-6 Weeks Goal Progress: Progressing Goal 3:: I with HEP Goal Time Frame: 4-6 Weeks Goal Progress: Progressing Goal 4:: Pt will demonstrate a more normalized gait pattern with better heel strike to aid with community ambulation Goal Time Frame: 4-6 Weeks Goal Progress: Progressing Anticipated Interventions Patient/Client Instruction: Educate patient on: Condition, Plan of Care For the Purpose of:: To improve self management Therapeutic Exercise to Include: Strength training, Balance training, Flexibilty training, Passive ROM, Active ROM For the Purpose of:: To decrease pain, To increase ROM, To improve muscle performance and motor function Please do not hesitate to contact me at [phone] by phone or if you have questions or concerns regarding this new plan of care! Sincerely, Kwasi Jordan, PT, ATC
--- NOTE | 2022-02-02 10:26 | HP.OTREVAL ---
SEBASTIAN MIHCAEL, It has been my pleasure to treat JOSE ORLANDO over the last 14 visits for CVA, spastic hemiparesis. Please see the progress note below for an update on the occupational therapy plan of care! Subjective: pt. had botox on Tuesday01-27-22, felt like crap 20 shots arm and leg. neck still feels tight but not like it used to. pt also states she can tell the botox has affected her voice- Objective/Function: L shoulder 125* this is increase from 90* active flexion. pt. reporting that she still wears night time brace on L hand. shoulder at eval left was at 90* active -PROM 150 shoulder flex- shoulder abduction L 110*. Elbow: right WNL left 0/140. Forearm: right WNL left slow but can get Full ROM. ROM Comments: pt has made good gains with her ROM -. pt demo the ability to perform shoulder flexion without compensation of elbow flex-- noted ataxic motion with increased shoulder flexion-. pt demo with flexion tone of digits with active shoulder motion-. pt making gains and would benefit from skilled OT services 1-2x week for 8 weeks Plan Frequency: 1-2x /Week Duration: 2 Months Visits in this POC: 20 Plan: cont shoulder , scapular and tricep strengthening, focusing on extension. wrist ext and triceps Goals - Goals Patient Goals: Regain Mobility, Use Hand/Wrist/Arm Normally Again, Be More Independent in ADLS, Decrease Muscle Tone, Resume Former Household Responsibilities (Cooking,Cleaning,Yard, etc.) Goal:: pt will demo a increase in left shoulder flex 4+/5 abduction 4+/5. scapula elevation 4+/5 and scapula retraction 4+/5 MMT to increase pts ROM for IND ADLS by d.c. pt will demo fluid reciprocal shoulder flexion as precursor to ADLs by week 6 Goal:: pt will demo a increase in left shoulder flex to 155* or greater to increase pts ind with ADls by d/d. pt will demo a increase in left shoulder abduction 155* or greater to increase pts ind. with ADLS and IADLS by d.c Goal:: will add goal at later date as pt gains more shoulder flex/ext Goal:: pt will demo understanding of using hand brace at night and throughout the day to decrease flexion tone of digits by end of week 3 Anticipated Interventions Anticipated Interventions: A/AAROM/PROM, Strengthening, Triggerpoint Release, Orthoses, Ergonomic Education, Neuro Reeducation, Sensory Stimulation, ADL Training, Education re assistive Equipment, Education re Diagnosis, Caregiver Training, Home Program Please do not hesitate to contact me at [phone] by phone or if you have questions or concerns regarding this new plan of care! Sincerely, Rena Díaz, OTR/L, CHT
--- NOTE | 2022-04-19 17:50 | HP.PTREVAL ---
SEBASTIAN MICHAEL, It has been my pleasure to treat JOSE ORLANDO over the last 20 visits for L hemiparesis. Please see the progress note below for an update on the physical therapy plan of care! Subjective: I am doing better overall. I still have a hard time walking, and I feel weak Objective/Function: L ankle DF ROM is -15 degrees. L ankle MMT: 4+/5 throughout with the exception of eversion= 1/5. Pt is I with HEP of L ankle stretching. L ankle still inverts with ambulation which still makes patient suseptible to falls Plan Plan: Attempt to get 12 more PT visits approved to focus on L LE strengthening and functional balance to aid with improving gait pattern and preventing future falls Balance/Gait/Functional tests - Balance/Special Test Scores Lower Extremity Functional Score: 38 Goals Goal 1:: Increase L ankle DF ROM x 20 degrees to aid with gait Goal Time Frame: 4-6 Weeks Goal Progress: Progressing Goal 2:: Increase L ankle strength x 1 grade to aid with stair negotiation Goal Time Frame: 4-6 Weeks Goal Progress: Progressing Goal 3:: I with HEP Goal Time Frame: 4-6 Weeks Goal Progress: Goal Met Goal 4:: Pt will demonstrate a more normalized gait pattern with better heel strike to aid with community ambulation Goal Time Frame: 4-6 Weeks Goal Progress: Progressing Anticipated Interventions Patient/Client Instruction: Educate patient on: Condition, Plan of Care For the Purpose of:: To improve self management Therapeutic Exercise to Include: Strength training, Balance training, Flexibilty training, Passive ROM, Active ROM For the Purpose of:: To decrease pain, To increase ROM, To improve muscle performance and motor function Please do not hesitate to contact me at [phone] by phone or if you have questions or concerns regarding this new plan of care! Sincerely, Kwasi Jordan, PT, ATC
--- NOTE | 2022-04-20 11:02 | HP.PT.NRP ---
JOSE ORLANDO was seen in my office for initial evaluation on 10/21/21. The following Plan of Care was established for this patient: Initial Frequency: 2-3x /Week Initial Duration: 3 Months Patient/Client Instruction: Educate patient on: Condition, Plan of Care For the Purpose of:: To improve self management Therapeutic Exercise to Include: Strength training, Balance training, Flexibilty training, Passive ROM, Active ROM For the Purpose of:: To decrease pain, To increase ROM, To improve muscle performance and motor function This patient was last seen in our office . Pertinent comments regarding their Physical therapy will appear below: Pt has been treated for 20 PT visits for L hemiplegia throught the date of 04/19/22. Pt will not be continuing at this time secondary to her work schedule and is discontinued at this time. At this point I will be discontinuing this patient from physical therapy. I would be happy to see this patient again in the future if found appropriate by the physician. Thank you! Kwasi Jordan, PT, ATC Balance/Gait/Functional tests - Balance/Special Test Scores Lower Extremity Functional Score: 38
--- NOTE | 2022-04-29 09:09 | HP.OTDCSUM ---
It has been my pleasure to treat JOSE ORLANDO under orders from SEBASTIAN MICHAEL, for the diagnosis of CVA, spastic hemiparesis for a total of 19 visit(s). Please see the following information for a summary of their discharge status. % Improvement: 40 Objective/Function: L shoulder 125* this is increase from 90* active flexion. pt. reporting that she still wears night time brace on L hand. shoulder at eval left was at 90* active -PROM 150 shoulder flex- shoulder abduction L 110*. Elbow: right WNL left -20/145. Forearm: right WNL left slow but can get Full ROM ( tight pronator) ROM Comments: pt has made good gains with her ROM -. pt demo the ability to perform shoulder flexion without compensation of elbow flex-- noted ataxic motion with increased shoulder flexion-. pt demo with flexion tone of digits and wrist - pt to cont with HEP and agree with D/c until Jun. Patient Goals: Regain Mobility, Use Hand/Wrist/Arm Normally Again, Be More Independent in ADLS, Decrease Muscle Tone, Resume Former Household Responsibilities (Cooking,Cleaning,Yard, etc.) Goal:: pt will demo a increase in left shoulder flex 4+/5 abduction 4+/5. scapula elevation 4+/5 and scapula retraction 4+/5 MMT to increase pts ROM for IND ADLS by d.c. pt will demo fluid reciprocal shoulder flexion as precursor to ADLs by week 6 Goal:: pt will demo a increase in left shoulder flex to 155* or greater to increase pts ind with ADls by d/d. pt will demo a increase in left shoulder abduction 155* or greater to increase pts ind. with ADLS and IADLS by d.c Goal:: will add goal at later date as pt gains more shoulder flex/ext Goal:: pt will demo understanding of using hand brace at night and throughout the day to decrease flexion tone of digits by end of week 3 Plan: D/C with HEP as pt request hold on therapy until after Oct. 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 Therapy agreed and rec.d pt to cont with her HEP- pt demo understanding and agree to D.c If there are questions or concerns regarding this patient's occupational therapy, please fell free to call me at [phone]. Thank you for the referral of this patient. Sincerely, Rena Díaz OTR/L, CHT
== END 2022-04-19 19:00 | disposition home or self-care (01) ==
LOC: OT 18:00
DX: G81.14 Spastic hemiplegia affecting left nondominant side (principal)
CPT/HCPCS: 97110; 97112; 97140; 97161; 97164; 97166; 97530

== ENCOUNTER 2022-12-02 17:30 | Outpatient (RCR) | payer BC, OTHER, SELFPAY ==
--- NOTE | 2022-08-03 08:17 | HP.PTEVAL_ITS ---
Patient's Visit Information JOSE ORLANDO is a 37 year old F referred to Physical Therapy by SEBASTIAN MICHAEL with a diagnosis of L hemiparesis. Date of Evaluation: 08/02/22 Physical Therapist: Kwasi Jordan, PT, ATC - Visit Plan Frequency: 2-3x /Week Duration: 4-6 Weeks Plan: L ankle DF stretching, L LE stretching and strengthening, balance and proprio, gait training, core stab ex's, nustep, and HEP - Subjective CVA: 03/07/19. Pt reports she had a stroke that resulted in L hemiparesis. Pt reports she has had PT in the past which really helped with her ability to ambulate, but notes she feels like she needs more help. Pt reports she is the most limited with her walking and the ROM in her L ankle. Pt reports she has stairs at home that she still struggles with. Pt reports her balance is also bad, noting that he almost fell last week as a result of her balance. Pt notes she is limited with all of her house chores at this time. Pt reports she also has difficulty with kicking out her L LE secondary to weakness. Pt reports she just received all of her Botox injections today which are for decreasing her muscle guarding in hopes to increase her L ankle ROM. Pt reports she has good sensation in her LE's at this time. Pt reports she is achy in her LE's at this time. L LE achiness is rated at 2/10 this date. - Objective Neuro: B LE sensation is WNL to light touch. B patellar reflex= 3/3. Gait: Pt i s able to ambulate greater than 1000 feet without difficulty. MMT: L LE is grossly 4-4+/5 with exception to ankle DF 1/5. FGA: indicating a moderate fall risk. ankle ROM: L ankle DF ROM= -55, R ankle DF ROM= 15 degrees - Balance/Special Test Scores Functional Gait Assessment Score: 17 % Disability: 43.3400 Lower Extremity Functional Score: 36 - Goals Goal 1:: Increase FGA score x 5 points to aid with preventing future falls Goal Time Frame: 4-6 Weeks Goal 2:: Increase L ankle DF ROM x 40 degrees to aid with restoring a more normalized gait pattern Goal Time Frame: 4-6 Weeks Goal 3:: Increase L LE strength x 1 grade to aid with IADL's Goal Time Frame: 4-6 Weeks Goal 4:: I with HEP Goal Time Frame: 4-6 Weeks - Rehabilitation Potential Physical Therapy Diagnosis: Pt has a Hx of falls, L LE weakness, and balance difficulty secondary to L hemiparesis Rehabilitation Potential: Good - Anticipated Interventions Patient/Client Instruction: Educate patient on: Condition, Plan of Care For the Purpose of:: To improve self management Therapeutic Exercise to Include: Strength training, Endurance training, Balance training, Flexibilty training, Gait and locomotor training, Dynamic Lumbar Stabilization For the Purpose of:: To increase ROM, To improve muscle performance and motor function, To improve gait and locomotor functions Thank you for the opportunity to evaluate your patient. For Medicare and Medicare HMO plans, please review the plan of care and approve it. It will need to be FAXED BACK to us at [phone] for Medicare purposes. For Medicare only, by signing this I certify the plan of care. Please let me know if there are questions or concerns regarding this plan of care. Physician Signature: Date:
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
--- NOTE | 2022-09-14 11:07 | HP.PTREVAL ---
SEBASTIAN MICHAEL, It has been my pleasure to treat JOSE ORLANDO over the last 7 visits for L hemiparesis. Please see the progress note below for an update on the physical therapy plan of care! Subjective: I am getting stronger Objective/Function: L LE is grossly 4+-5/5. L ankle DF ROM -10 degrees. FGA= 19/30. Pt is showing steady progress toward Rx goals Plan Plan: Cont with L ankle DF stretching, L LE stretching and strengthening, balance and proprio, gait training, core stab ex's, nustep, and HEP Balance/Gait/Functional tests - Balance/Special Test Scores Functional Gait Assessment Score: 19 % Disability: 36.6700 Lower Extremity Functional Score: 36 Goals Goal 1:: Increase FGA score x 5 points to aid with preventing future falls Goal Time Frame: 4-6 Weeks Goal Progress: Progressing Goal 2:: Increase L ankle DF ROM x 40 degrees to aid with restoring a more normalized gait pattern Goal Time Frame: 4-6 Weeks Goal Progress: Progressing Goal 3:: Increase L LE strength x 1 grade to aid with IADL's Goal Time Frame: 4-6 Weeks Goal Progress: Progressing Goal 4:: I with HEP Goal Time Frame: 4-6 Weeks Goal Progress: Progressing Anticipated Interventions Patient/Client Instruction: Educate patient on: Condition, Plan of Care For the Purpose of:: To improve self management Therapeutic Exercise to Include: Strength training, Endurance training, Balance training, Flexibilty training, Gait and locomotor training, Dynamic Lumbar Stabilization For the Purpose of:: To increase ROM, To improve muscle performance and motor function, To improve gait and locomotor functions Please do not hesitate to contact me at [phone] by phone or if you have questions or concerns regarding this new plan of care! Sincerely, Kwasi Jordan, PT, ATC
== END 2022-12-02 19:00 | disposition home or self-care (01) ==
LOC: PT 17:30
DX: G81.94 Hemiplegia, unspecified affecting left nondominant side (principal)
CPT/HCPCS: 97110; 97112; 97140; 97161; 97164; 97166; 97760

== ENCOUNTER 2023-09-21 16:00 | Outpatient (RCR) | payer BC, SELFPAY ==
--- NOTE | 2023-08-22 17:13 | HP.PTEVAL ---
Patient's Visit Information Visit Information Visit Information: JOSE ORLANDO is a 38 year old F referred to Physical Therapy by SEBASTIAN MICHAEL with a diagnosis of L hemiparesis. Date of Evaluation: 08/22/23 Physical Therapist: Kwasi Jordan, PT, ATC Visit Plan Frequency: 2x /Week Duration: 4-6 Weeks Plan: B LE strengthening, balance and proprio, L ankle stretching and mobs, nustep, and HEP Subjective Subjective: Pt reports she had a CVA 03/07/19 which resulted in L hemiparesis. Pt reports she has pain in her L ankle which she will be having surgery for in the near future. Pt reports she also has significant weakness in her L LE which has resulted in her having a lot of balance concerns. Pt reports she has fallen several times in the past, the last one occurring in her shower two weeks ago. Pt reports she has not suffered any serious injuries secondary to her falls. Pt reports she has ambulated with the use of a cane at times in the past, but notes that she has difficulty in general secondary to losing function in her L hand. Pt reports she has good sensation in her feet. Pt reports her goals for PT are to strengthen both of her legs to help her to prevent future falls and get her ready for her surgery. Pt reports she has no pain while sitting here in the clinic, but notes her pain will elevate to 8/10 at worst. Pt reports she would also like to be able to negotiate stairs better at this time as she has to use them for her laundry chores. Pain L LE: Pain Intensity (Out of 10): 0 Pain Intensity Range: 8 Objective Objective: Neuro: B LE sensation is WNL to light touch. L patellar reflex= 3/3, R= 1/3 ROM: B LE's are WFL when compared bilaterally with exception to L ankle which lacks functional AROM MMT: R hip flex= 21, abd= 49, add= 43, knee flex= 41, knee ext= 59 #F; L hip flex= 22, abd= 34, add= 40, knee flex= 34, knee ext= 57 #F FGA: 30- Pt is a risk for falling at this time Balance/Special Test Scores Functional Gait Assessment Score: 22 % Disability: 26.6700 Lower Extremity Functional Score: 40 Goals Goal 1:: Increase L LE strength x 5#F to aid with stair negotiation Goal Time Frame: 4-6 Weeks Goal 2:: Increase FGA score x 4 points to aid with preventing future falls Goal Time Frame: 4-6 Weeks Goal 3:: I with HEP Goal Time Frame: 4-6 Weeks Goal 4:: Increases LEFS x 9 points to aid with improving overall functional mobility Goal Time Frame: 6-8 Weeks Rehabilitation Potential Physical Therapy Diagnosis: Pt has L LE weakness and a history of falls secondary to residual effects from CVA Rehabilitation Potential: Good Anticipated Interventions Patient/Client Instruction: Educate patient on: Condition and Plan of Care For the Purpose of:: To improve self management Therapeutic Exercise to Include: Strength training, Endurance training, Balance training, Flexibilty training, Gait and locomotor training and Dynamic Lumbar Stabilization For the Purpose of:: To decrease pain, To improve muscle performance and motor function, To increase tolerance to activity/condition/position and To improve safety Text: Thank you for the opportunity to evaluate your patient. For Medicare and Medicare HMO plans, please review the plan of care and approve it. It will need to be FAXED BACK to us at [phone] for Medicare purposes. For Medicare only, by signing this I certify the plan of care. Please let me know if there are questions or concerns regarding this plan of care. Physician Signature: Date:
--- NOTE | 2023-08-30 12:45 | HP.OTEVAL_ITS ---
Patient's Visit Information Visit Information Visit Information: JOSE ORLANDO is a 38 year old F, referred to Occupational Therapy by SEBASTIAN MICHAEL, with a diagnosis of left spastic hemiplegia. Date of Evaluation: 08/22/23 Occupational Therapist: MERT Ayala/Paxton, CHT Subjective Subjective: This 38 year old female was seen for OT eval with dx of left spastic hemiplegia. 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 states she received Botox injection on 2022. pt states they injected trap/neck along with biceps/triceps and forearm muscles - pt states with the injections she is feeling less pain from the spasticity. pt states she is wearing a night brace taking muscle relaxer 2 at night only. pt states she would like to get some use of left UE to increase her ind with ADLs. ADLs Eating: Use silverware and Cut food Bathing: Wash hair and Squeeze shampoo bottle Comments: needs a pump dispenser Kitchen: Chop with knife, Peel fruits & vegetables, Open jars, Take dish out of oven and Load/unload archival records clerk Household: Laundry Comments: bilateral hand tasks difficulty Pain left UE: Current Pain Intensity: 0 Pain Intensity Range: 9 Objective Objective/Observation: due to limited ROM weakness pt reports difficulty with all daily tasks that require bilateral hand tasks- ROM ROM Comments: pt demo with limited left shoulder flex to 80* prior to compensation with body leaning - shoulder abduction to 110* elbow ROM WNL forearm supination MOD tone with ability to supinate to 60* wrist ext to 40* demo limited digit flex/.ext for limited functional grasp Strength Compliance Tester: right 70# left 5# Strength Comments: Left UE shoulder ROM PROM is WNL pt demo with compensatory shoulder abd- and flexion leaning with torso to gain increase ROM pt demo left elbow flex/ext WNL ( slower motion but able to achieve full elbow extension) noted slight wrist ext and no functional grasp/release at this time hand fisted with ambulation and sitting Sensation Sensation Comments: denies issues Movement Ataxia: prior to injections Muscle Tone: MOD tone left wrist and digits Movement Comments: pt demo with min tone of left shoulder flex/ext IR and ER Goals Goal:: pt will demo a increase in pts left shoulder strength demo by pt performing full shoulder flex without compensation by willyc pt will demo fet2 testing resisting at 10# or greater by josesito Goal:: pt will demo a increase in left shoulder flexion/ shoulder abduction to 120* or greater to increase pts ind, with ADLs by [email or web address] pt will demo finger flex/ext to open hand to put glove on by josesito Goal:: pt will report pain no greater than 3/10 with use of left UE with ADls by josesito Goal:: pt will demo the ability to perform fluid motion of flex/extension of digits to increase grasp of objects ranging in size from small to large by d/c pt will demo the ability to use left hand as assist with zipper, button etc, by josesito Rehabilitation General Assessment: pt demo with a limitations of left UE ROM and active movement increase tone limiting pts cohesive flexion/extension ability of left UE. pt perform all ADLS right handed due to tone, limited ROM and weakness of left UE. Pt would benefit from skilled OT services 1-2x week for 4 weeks to address pts limitations,. Pt demo understanding and agree to POC. Rehabilitation Potential: Good Anticipated Interventions Anticipated Interventions: A/AAROM/PROM, Strengthening, Triggerpoint Release, Orthoses, Joint Protection/Energy Conservation, Ergonomic Education, Fine Motor Coord/Fab, Neuro Reeducation, Education re assistive Equipment, Education re Diagnosis and Home Program Visit Plan Frequency: 1-2x /Week Duration: 4 Weeks TEXT: Thank you for the opportunity to evaluate your patient. For Medicare and Medicare HMO plans, please review the plan of care and approve it. It will need to be FAXED BACK to us at [phone] for Medicare purposes. Please let me know if there are questions or concerns regarding this plan of care. Physician Signature: Date:
--- NOTE | 2023-09-21 16:04 | HP.PTDCSUM ---
Discharge Summary D/C summary: It has been my pleasure to treat JOSE ORLANDO referred by SEBASTIAN MICHAEL, with the diagnosis of L hemiparesis for a total of 9 visit(s). Discharge Date: Please see the following information for a summary of their discharge status. Subjective Subjective: Pt is to have surgery 11/08/22 to have triple arthrodesis performed. Pain L LE: Pain Intensity (Out of 10): 0 Overall Improvement % Improvement: 75 Objective Objective/Function: MMT: L hip flex= 30, abd= 77, add= 58 #F; L knee flex= 44, ext= 71 #F FGA: - still a risk for falling Pt is I with a HEP Goals Goal 1:: Increase L LE strength x 5#F to aid with stair negotiation Goal Progress: Goal Met Goal 2:: Increase FGA score x 4 points to aid with preventing future falls Goal Progress: Progressing Goal 3:: I with HEP Goal Progress: Goal Met Goal 4:: Increases LEFS x 9 points to aid with improving overall functional mobility Goal Progress: Progressing Plan Plan: Discontinue to HEP D/C Information d/c sentence: If there are questions or concerns regarding this patient's physical therapy, please feel free to call me at [phone]. Thank you for the referral of this patient. Sincerely, Kwasi Jordan, PT, ATC Balance/Gait/Functional tests Balance/Special Test Scores Functional Gait Assessment Score: 24 % Disability: 20.0000 Lower Extremity Functional Score: 49 Improvement % Improvement: 75
--- NOTE | 2023-09-23 09:57 | HP.OTDCSUM ---
Discharge Summary D/C Summary: It has been my pleasure to treat JOSE ORLANDO under orders from SEBASTIAN MICHAEL, for the diagnosis of left spastic hemiplegia for a total of 2 visit(s). Please see the following information for a summary of their discharge status. Goals Patient Goals: Regain Mobility, Regain Strength, Improve Fine Motor Skills, Use Hand/Wrist/Arm Normally Again and Be More Independent in ADLS Goal:: pt will demo a increase in pts left shoulder strength demo by pt performing full shoulder flex without compensation by d.c pt will demo fet2 testing resisting at 10# or greater by d.c Goal:: pt will demo a increase in left shoulder flexion/ shoulder abduction to 120* or greater to increase pts ind, with ADLs by d.c pt will demo finger flex/ext to open hand to put glove on by d.c Goal:: pt will report pain no greater than 3/10 with use of left UE with ADls by d.c Goal:: pt will demo the ability to perform fluid motion of flex/extension of digits to increase grasp of objects ranging in size from small to large by d/c pt will demo the ability to use left hand as assist with zipper, button etc, by d.c Plan Plan: D/C D/C Information Discharge Comments: pt D/c from OT services per request as pt is going to have foot sx and wants to save her therapy sessions. pt instructed in HEP and brace use to decrease tone. pt demo understanding and is d/c from OT at this time. d/c sentence: If there are questions or concerns regarding this patient's occupational therapy, please fell free to call me at [phone]. Thank you for the referral of this patient. Sincerely, Rena Díaz, OTR/L, CHT
== END 2023-09-21 19:00 | disposition home or self-care (01) ==
LOC: OT 16:00
DX: G81.14 Spastic hemiplegia affecting left nondominant side (principal)
CPT/HCPCS: 97110; 97112; 97161; 97164; 97166; 97530

== ENCOUNTER 2024-06-25 17:00 | Outpatient (RCR) | payer BC, SELFPAY ==
--- NOTE | 2023-12-26 16:58 | HP.PTEVAL ---
Patient's Visit Information Visit Information Visit Information: JOSE ORLANDO is a 38 year old F referred to Physical Therapy by Dr. Kwadwo Odonnell MD with a diagnosis of L ankle triple arthrodesis 11/08/23. Date of Evaluation: 12/26/23 Physical Therapist: Kwasi Jordan, PT, ATC Visit Plan Frequency: 2-3x /Week Duration: 4-6 Weeks Plan: L ankle PROM and mobs, strengthening, balance and proprio, gait training, and HEP Subjective Subjective: DOS: 11/08/23. Pt reports she had a L ankle triple arthrodesis performed with an achilles lengthening procedure performed. Pt reports she had the surgery secondary to having a CVA years ago. Pt reports she is very glad to have had the surgery at this time as she is now able to dorsiflex her L ankle. Pt reports she was non weightbearing up until last Tuesday. Pt notes she is now able to ambulate with the use of a cane while wearing her cam boot. Pt reports she has good sensation in her feet with exception to sandra incisional. Pt reports occasional sleep difficulty at this time secondary to pain. Pt reports she has stairs at home and at work that she has to be able to negotiate. Pt reports her foot becomes swollen and sore with increased ambulation. 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 3/10 pain in L foot while sitting here in the clinic, and notes it increases to 9/10 at worst. Pain L ankle: Pain Intensity (Out of 10): 3 Pain Intensity Range: 9 Objective Objective: Neuro: B LE sensation is WNL to light touch. Observation: Incisions healed. No signs of infection. Moderate swelling noted this date ROM: R ankle DF= 12, PF= 60 degrees; L ankle DF= -5, PF= 24 degrees MMT: R ankle DF= 56, PF= 56 #F; L ankle DF= 6, PF= 4 #F Gait: Pt is able to ambulate 63 feet with no cam boot and cyn cane until needing to sit down and rest. Balance/Special Test Scores Lower Extremity Functional Score: 16 Goals Goal 1:: Decrease L ankle pain x 50% to aid with sleep Goal Time Frame: 4-6 Weeks Goal 2:: Increase L ankle strength x 10 pounds force to aid with stair negotiation Goal Time Frame: 4-6 Weeks Goal 3:: Increase L ankle DF ROM x 5-10 degrees to aid with restoring a more normal gait pattern Goal Time Frame: 4-6 Weeks Goal 4:: I with HEP Goal Time Frame: 4-6 Weeks Rehabilitation Potential Physical Therapy Diagnosis: Pt has L ankle pain, weakness, and limited ROM secondary to L ankle surgery Rehabilitation Potential: Good Anticipated Interventions Patient/Client Instruction: Educate patient on: Condition and Plan of Care For the Purpose of:: To improve self management Therapeutic Exercise to Include: Strength training, Endurance training, Balance training, Flexibilty training, Gait and locomotor training, Passive ROM and Active ROM For the Purpose of:: To decrease pain, To increase ROM and To improve muscle performance and motor function Cryotherapy (ice pack, ice massage): Yes For the Purpose of:: To decrease pain Text: Thank you for the opportunity to evaluate your patient. For Medicare and Medicare HMO plans, please review the plan of care and approve it. It will need to be FAXED BACK to us at [phone] for Medicare purposes. For Medicare only, by signing this I certify the plan of care. Please let me know if there are questions or concerns regarding this plan of care. Physician Signature: Date:
--- NOTE | 2024-01-31 17:50 | HP.PTREVAL_ITS ---
Re-Evaluation Intro: Dr. Kwadwo Odonnell MD, It has been my pleasure to treat JOSE ORLANDO over the last 10 visits for L ankle triple arthrodesis 11/08/23. Please see the progress note below for an update on the physical therapy plan of care! Subjective Subjective: Normal 2/10 soreness today in ankle. Wearing boot outside of PT. 0/10 sometimes. 2/10 is because she has been up and on it. 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 Walking out of boot 12 steps at home on firm ground. To doctor on Tuesday Objective Objective/Function: Walks with R forearm crutch and shoe today mod I, slight steppage gait but no help needed and no increased pain. Steps ascending with crutch and reciprocal, descending with crutch and using L to step down only, painful to stand on L and descend with R but able gingerly. AROM L ankle -5 DF to 8 PF, PROM 5 DF 10 PF. Strength is 3/5 Df and 3/5 PF in limited ROM. Ev/inv palpable contractions but no ROM available. Knee strength 4+, hip strength 4- on L. SLS is challenging on L not due to pain but avoids weight shift and requires UE for any time. Overall improved pain and movement but still some work to do with full ROM, strength and proprio at ankle L and getting to full body workout in gym. Computers down at patient visit so full goal recheck not performed. New goals set and old goals appropraite, Fair prognosis Plan Plan Plan: Plan 2x/week for 6 more week POC for: 1. L ankle strength and proprioception, Df and PF manual ROM L, please get on full body workout in gym that she can continue on her own eventually with melvin pichardo. 2. Gait training as needed for balance and confidence. Balance/Gait/Functional tests Balance/Special Test Scores Lower Extremity Functional Score: 39 Goals Goals Goal 1:: Decrease L ankle pain x 50% to aid with sleep Goal Time Frame: 4-6 Weeks Goal Progress: Goal Met Goal 2:: Increase L ankle strength x 10 pounds force to aid with stair negotiation Goal Time Frame: 4-6 Weeks Goal Progress: Progressing, slow, approp Goal 3:: Increase L ankle DF ROM x 5-10 degrees to aid with restoring a more normal gait pattern Goal Time Frame: 4-6 Weeks Goal 4:: I with HEP Goal Time Frame: 4-6 Weeks Goal Progress: Progressing, approp Goal 5:: steps reciprocal with one rail and no pain descending Goal Time Frame: 4-6 Weeks Goal 6:: I appropriate full body ex for [facility] wellness in gym Goal Time Frame: 4-6 Weeks Anticipated Interventions Anticipated Interventions Patient/Client Instruction: Educate patient on: Condition and Plan of Care For the Purpose of:: To improve self management Therapeutic Exercise to Include: Strength training, Endurance training, Balance training, Flexibilty training, Gait and locomotor training, Passive ROM and Active ROM For the Purpose of:: To decrease pain, To increase ROM and To improve muscle performance and motor function Cryotherapy (ice pack, ice massage): Yes For the Purpose of:: To decrease pain Re-Evaluation Ending Re-evaluation ending: Please do not hesitate to contact me at [phone] by phone or if you have questions or concerns regarding this new plan of care! Sincerely, Kenny Vázquez, DPT, OCS, CSCS
--- NOTE | 2024-06-25 17:45 | HP.PTDCSUM_ITS ---
Discharge Summary D/C summary: It has been my pleasure to treat JOSE ORLANDO referred by Dr. Kwadwo Odonnell MD, with the diagnosis of L ankle triple arthrodesis 11/08/23 for a total of 34 visit(s). Discharge Date: Please see the following information for a summary of their discharge status. Subjective Subjective: Pt reports she is ready for discharge. Notes she is doing much better. L leg is achy Pain L ankle: Pain Intensity (Out of 10): 0 Overall Improvement % Improvement: 75 Objective Objective/Function: Pt is I with HEP and gym routine Pt is able to negotiate 10 stairs with 1 HR and only mild pain L ankle DF ROM 4 degrees Pt is able to sleep throughout the night not being [id number] by pain L ankle MMT: DF= 23, PF= 40 #F Goals Goal 1:: Decrease L ankle pain x 50% to aid with sleep Goal Progress: Goal Met Goal 2:: Increase L ankle strength x 10 pounds force to aid with stair negotiation Goal Progress: Goal Met Goal 3:: Increase L ankle DF ROM x 5-10 degrees to aid with restoring a more normal gait pattern Goal Progress: Goal Met Goal 4:: I with HEP Goal Progress: Goal Met Goal 5:: steps reciprocal with one rail and no pain descending Goal Progress: Goal Met Goal 6:: 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 Thank you for the referral of this patient. Sincerely, Kwasi Jordan, PT, ATC Balance/Gait/Functional tests Balance/Special Test Scores Lower Extremity Functional Score: 49 Improvement % Improvement: 75
== END 2024-06-25 19:00 | disposition home or self-care (01) ==
LOC: PT 17:00
DX: M21.962 Unspecified acquired deformity of left lower leg (principal)
CPT/HCPCS: 97110; 97140; 97161; 97164; 97530